=== PATIENT | male | born 1940 | race Caucasian/White ===

== ENCOUNTER 2017-05-28 17:11 | Observation (INO) | payer MEDICARE ==
[~2017-05-28] VITALS: Ht 175.3 cm; Wt 82.1 kg
[~2017-05-28 17:11] MED LIST: ASPI81TA82 PO; ATOR20TA42 PO
[2017-05-28 20:15] VITALS: BP 139/80; PULSE 73; RESP 18; TEMP 98.1; O2SAT 96
[2017-05-28] MEDS ORDERED: MORPHINE SULFATE 2 MG/ML INJ IV PRN (20:45)
[2017-05-28] MEDS ORDERED: NALOXONE HCL 0.4 MG/ML AMP IV PRN (20:45)
[2017-05-28] MEDS ORDERED: ACETAMINOPHEN/HYDROcodone 325 MG/5 MG TAB PO PRN ×2 (20:45)
[2017-05-28] MEDS ORDERED: SODIUM CHLORIDE 0.9% FLUSH 10 ML FLUSH IV FLUSH PRN (20:45)
[2017-05-28] MEDS: SODIUM CHLORIDE 0.9% FLUSH 10 ML FLUSH IV FLUSH SCH (21:00)
[2017-05-28] MEDS: MORPHINE SULFATE 4 MG/ML INJ IV PRN (21:05)
--- NOTE | 2017-05-28 21:45 | HHI.HP ---
HPI Service [facility] Primary Care Physician Tonny Madera DO Admission Diagnosis Right elbow fracture Diagnoses: Chief Complaint: Right elbow pain Travel History International Travel<30 Days: No Contact w/Intl Traveler <30 Da: No History of Present Illness 77-year-old male with a history of hypertension and hyperlipidemia was transferred from [facility] for an elbow fracture. He states he was standing on a ladder taking down boards on his windows when the ladder became uneven on the ground and he fell landing on his right arm. Denies hitting his head or LOC. He states the pain is in his right elbow, constant, 9/10, and was just given morphine IV for some relief. Denies any associated nausea and vomiting. Prior to the fall he denies any chest pain, shortness of breath, dizziness or headache. He was originally accepted by Dr. Krishna for transfer, but family is requesting that Dr. Huang do the surgery. Review of Systems Except as stated in HPI: all other systems reviewed are Neg Past Family Social History Past Medical History Hypertension Hyperlipidemia Kidney stones Past Surgical History Right foot surgery Appendectomy Left hand surgery Bilateral Cataracts Reported Medications Reported Meds & Active Scripts Active Reported Aspir-81 (Aspirin) 81 Mg Tab 81 Mg PO DAILY Lipitor (Atorvastatin Calcium) 20 Mg Tab 20 Mg PO DAILY Allergies: Coded Allergies: No Known Allergies (Verified , 02/24/07) Active Ordered Medications Current Medications Medications (Trade) Dose Ordered Sig/Juvenal Route Start Time Stop Time Status Last Admin ([place] 5-325 Mg) 1 tab Q4H PRN PO 05/28/17 20:45 ([place] 5-325 Mg) 2 tab Q6H PRN PO 05/28/17 20:45 (NS Flush) 2 ml UNSCH PRN IV FLUSH 05/28/17 20:45 (NS Flush) 2 ml BID IV FLUSH 05/28/17 21:00 (Narcan Inj) 0.4 mg UNSCH PRN IV 05/28/17 20:45 (Morphine Inj) 2 mg Q4H PRN IV 05/28/17 21:00 Family History Patient denies any family history, no heart disease or cancer Social History Tobacco use: 3/4 a PPD Alcohol use: Denies Illicit drug use: Denies Physical Exam Vital Signs Vital Signs Date Time Temp Pulse Resp B/P (MAP) Pulse Ox O2 Delivery O2 Flow Rate FiO2 05/28/17 20:15 98.1 73 18 139/80 (99) 96 Physical Exam GENERAL: This is a well-nourished, well-developed patient, in no apparent distress. SKIN: No rashes, ecchymoses or lesions. Cool and dry. HEAD: Atraumatic. Normocephalic. EYES: Pupils equal round and reactive. ENT: Nose without bleeding, purulent drainage or septal hematoma. Airway patent. NECK: Trachea midline. No JVD or lymphadenopathy. CARDIOVASCULAR: Regular rate and rhythm without murmurs, gallops, or rubs. RESPIRATORY: Clear to auscultation. Breath sounds equal bilaterally. No wheezes , rales, or rhonchi. GASTROINTESTINAL: Abdomen soft, non-tender, nondistended. No hepato-splenomegaly , or palpable masses. No guarding. MUSCULOSKELETAL: No bilateral lower extremity edema. Right elbow tenderness and edema. No calf tenderness. NEUROLOGICAL: Awake and alert. Motor and sensory grossly within normal limits. Right arm in sling with minimal movement. Normal speech. Caprini VTE Risk Assessment Caprini VTE Risk Assessment: Mod/High Risk (score >= 2) VTE Pharm Contraindication: surgery in a.m. Caprini Risk Assessment Model Point Value = 1 Point Value = 2 Point Value = 3 Point Value = 5 Age 41-60 Minor surgery BMI > 25 kg/m2 Swollen legs Varicose veins or History of unexplained or recurrent spontaneous Oral contraceptives or hormone replacement Sepsis (< 1 month) Serious lung disease, including pneumonia (< 1 month) Abnormal pulmonary function Acute myocardial infarction Congestive heart failure (< 1 month) History of inflammatory bowel disease Medical patient at bed rest Age 61-74 Arthroscopic surgery Major open surgery (> 45 min) Laparoscopic surgery (> 45 min) Malignancy Confined to bed (> 72 hours) Immobilizing plaster cast Central venous access Age >= 75 History of VTE Family history of VTE Factor V Leiden Prothrombin [id number] Lupus anticoagulant Anticardiolipin antibodies Elevated serum homocysteine Heparin-induced thrombocytopenia Other congenital or acquired thrombophilia Stroke (< 1 month) Elective arthroplasty Hip, pelvis, or leg fracture Acute spinal cord injury (< 1 month) Prophylaxis Regimen Total Risk Factor Score Risk Level Prophylaxis Regimen 0-1 Low Early ambulation 2 Moderate Order ONE of the following: *Sequential Compression Device (SCD) *Heparin 5000 units SQ BID 3-4 Higher Order ONE of the following medications: *Heparin 5000 units SQ TID *Enoxaparin/Lovenox 40 mg SQ daily (WT < 150 kg, CrCl > 30 mL/min) *Enoxaparin/Lovenox 30 mg SQ daily (WT < 150 kg, CrCl > 10-29 mL/min) *Enoxaparin/Lovenox 30 mg SQ BID (WT < 150 kg, CrCl > 30 mL/min) AND/OR *Sequential Compression Device (SCD) 5 or more Highest Order ONE of the following medications: *Heparin 5000 units SQ TID (Preferred with Epidurals) *Enoxaparin/Lovenox 40 mg SQ daily (WT < 150 kg, CrCl > 30 mL/min) *Enoxaparin/Lovenox 30 mg SQ daily (WT < 150 kg, CrCl > 10-29 mL/min) *Enoxaparin/Lovenox 30 mg SQ BID (WT < 150 kg, CrCl > 30 mL/min) AND *Sequential Compression Device (SCD) Assessment and Plan Problem List: (1) Elbow fracture, right ICD Code: S42.401A - Unspecified fracture of lower end of right humerus, initial encounter for closed fracture (2) HTN (hypertension) ICD Code: I10 - Essential (primary) hypertension (3) Hyperlipidemia ICD Code: E78.5 - Hyperlipidemia, unspecified Assessment and Plan 77-year-old male with a history of hypertension and hyperlipidemia was transferred from [facility] for an elbow fracture. Right elbow fracture -Consult orthopedic, patient and family is requesting Dr. Huang -Morphine IV and by mouth [place] for pain management -Maintain right arm in sling Hypertension, chronic currently controlled: We will order home medications once med rec is updated Hyperlipidemia, chronic: We will order home medications once med rec is updated DVT prophylaxis: SCDs, hold chemical prophylaxis due to surgery in a.m. Discussed Condition With Patient, patient's Physician Certification 2 Midnight Certification Type: Admission for Inpatient Services Order for Inpatient Services The services are ordered in accordance with Medicare regulations or non- Medicare payer requirements, as applicable. In the case of services not specified as inpatient-only, they are appropriately provided as inpatient services in accordance with the 2-midnight benchmark. Estimated LOS (days): 2 days is the estimated time the patient will need to remain in the hospital, assuming treatment plan goals are met and no additional complications. Post-Hospital Plan: Home Connie Velazco May 28, 2017 21:45
[2017-05-29] MEDS: MORPHINE SULFATE 4 MG/ML INJ IV PRN ×4 (03:22→21:56)
[2017-05-29 04:17] VITALS: BP 108/60; PULSE 74; RESP 17; TEMP 98; O2SAT 95
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
[2017-05-29 08:00] VITALS: BP 118/74; PULSE 88; RESP 18; TEMP 98.2; O2SAT 96
--- NOTE | 2017-05-29 08:45 | RADRPT ---
EXAM DATE/TIME: 05/29/2017 07:32 [facility] COMPARISON: No previous studies available for comparison. INDICATIONS : Right shoulder pain. Fall. MEDICAL HISTORY : None. SURGICAL HISTORY : None. ENCOUNTER: Initial ACUITY: 1 day PAIN SCORE: 4/10 LOCATION: Right proximal humerus FINDINGS: There is evidence of acute anterior dislocation of the right shoulder. Clinical correlation is recom mended. Questionable Hill-Sachs deformity is noted. CONCLUSION: 1. Probable acute anterior dislocation. Clinical correlation is recommended. 2. Questionable Hill-Sachs deformity of the right humeral head. Tonny Terrell MD on May 29, 2017 at 8:22 Board Certified Radiologist. This report was verified electronically.
[2017-05-29] MEDS: SODIUM CHLORIDE 0.9% FLUSH 10 ML FLUSH IV FLUSH SCH ×2 (09:45→21:56)
[2017-05-29 10:59] LABS: AUTOMATED NEUTROPHIL # 7.6 TH/MM3 (1.8-7.7); BASOPHIL % 0.4 % (0.0-2.0); EOSINOPHIL # 0.2 TH/MM3 (0-0.4); EOSINOPHIL % 1.7 % (0.0-4.0); HEMATOCRIT 40.2 % (39.0-51.0); HEMO FLAGS DIFF FINAL; LYMPH % 15.4 % (9.0-44.0); LYMPHOCYTE # 1.7 TH/MM3 (1.0-4.8); MEAN CELL VOLUME 86.2 FL (80.0-100.0); MEAN CORPUSCULAR HEMOGLOBIN 29.4 PG (27.0-34.0); MONO % 12.9 % (0.0-8.0); NEUT % 69.6 % (16.0-70.0); PLATELET COUNT 210 TH/MM3 (150-450); RED BLOOD COUNT 4.66 MIL/MM3 (4.50-5.90); RED CELL DISTRIBUTION WIDTH 13.7 % (11.6-17.2); WHITE BLOOD COUNT 10.9 TH/MM3 (4.0-11.0)
[2017-05-29 11:12] LABS: BICARBONATE 23.2 MEQ/L (21.0-32.0); POTASSIUM 4.1 MEQ/L (3.5-5.1)
[2017-05-29 12:00] VITALS: BP 146/75; PULSE 64; RESP 18; TEMP 96.7; O2SAT 95
--- NOTE | 2017-05-29 13:38 | HHI.PR ---
Subjective Remarks Follow up on patient with right supracondylar distal humerus fracture. Patient seen and examined. Patient states pain is controlled at present. Denies any other complaints. Denies any fever or chills. Denies any chest pain or shortness of breath. Denies any N/V or abdominal pain. Objective Vitals Vital Signs Date Time Temp Pulse Resp B/P (MAP) Pulse Ox O2 Delivery O2 Flow Rate FiO2 05/29/17 12:00 96.7 64 18 146/75 (98) 95 05/29/17 08:00 98.2 88 18 118/74 (89) 96 05/29/17 04:17 98.0 74 17 108/60 (76) 95 05/29/17 03:26 18 05/29/17 01:45 Room Air 05/28/17 20:15 98.1 73 18 139/80 (99) 96 I/O 05/28/17 05/28/17 05/28/17 05/29/17 05/29/17 05/29/17 07:00 15:00 23:00 07:00 15:00 23:00 Intake Total 240 ml 0 ml Balance 240 ml 0 ml Intake Oral 240 ml 0 ml # Voids 1 1 # Bowel Movements 0 0 Result Diagram: 05/29/17 1018 05/29/17 1018 Imaging Last Impressions Shoulder X-Ray 05/29/17 0000 Signed Impressions: Service Date/Time: Monday, May 29, 2017 07:32 - CONCLUSION: 1. Probable acute anterior dislocation. Clinical correlation is recommended. 2. Questionable Hill-Sachs deformity of the right humeral head. Tonny Terrell MD Objective Remarks GENERAL: This is a well-nourished, well-developed patient, in no apparent distress. Awake and alert. Sitting up in hospital bed. SKIN: No rashes, ecchymoses or lesions. Cool and dry. HEAD: Atraumatic. Normocephalic. EYES: EOMI. Sclera nonicteric. ENT: Nose without bleeding, purulent drainage. Airway patent. NECK: Trachea midline. CARDIOVASCULAR: Regular rate and rhythm without murmurs, gallops, or rubs. RESPIRATORY: Clear to auscultation. Breath sounds equal bilaterally. No wheezes , rales, or rhonchi. GASTROINTESTINAL: Abdomen soft, non-tender, nondistended. No hepato-splenomegaly , or palpable masses. No guarding. MUSCULOSKELETAL: No bilateral lower extremity edema. Right elbow in splint and sling. No calf tenderness. NEUROLOGICAL: Awake and alert. Motor and sensory grossly within normal limits. RUE in sling, ROM not tested. Able to wiggle fingers of right hand. Sensation intact to light touch. Normal speech. Medications and IVs Current Medications Medications (Trade) Dose Ordered Sig/Juvenal Route Start Time Stop Time Status Last Admin ([place] 5-325 Mg) 1 tab Q4H PRN PO 05/28/17 20:45 ([place] 5-325 Mg) 2 tab Q6H PRN PO 05/28/17 20:45 (NS Flush) 2 ml UNSCH PRN IV FLUSH 05/28/17 20:45 (NS Flush) 2 ml BID IV FLUSH 05/28/17 21:00 05/29/17 09:45 (Narcan Inj) 0.4 mg UNSCH PRN IV 05/28/17 20:45 (Morphine Inj) 2 mg Q4H PRN IV 05/28/17 21:00 05/29/17 09:42 A/P Problem List: (1) Elbow fracture, right ICD Code: S42.401A - Unspecified fracture of lower end of right humerus, initial encounter for closed fracture (2) HTN (hypertension) ICD Code: I10 - Essential (primary) hypertension (3) Hyperlipidemia ICD Code: E78.5 - Hyperlipidemia, unspecified Assessment and Plan 77-year-old male with a history of hypertension and hyperlipidemia was transferred from [facility] for an elbow fracture. Right supracondylar distal humerus fracture -Ortho following, appreciate their assistance. Plan for surgery in am. NPO after MN. -Continue Morphine IV and by mouth [place] for pain management -Maintain right arm in sling -NWB RUE Hypertension, chronic - good control - awaiting med rec update to resume patients home medication Hyperlipidemia, chronic - awaiting med rec update to resume patients home medication DVT prophylaxis: SCDs, hold chemical prophylaxis due to surgery in a.m. Discussed with patient, nursing staff and Dr. Crane Attending Statement Pt had pain when we evaluated him. regrets what he did but is hopeful to have sx soon. no CP/SOb/N/V on exam, splint in place. able to wiggle his fingers, sensation intact, <2sec cap refil. management per ortho. sx in AM. appreciate Zoya Pabon May 29, 2017 13:38 Carlie Crane MD May 29, 2017 19:14
[2017-05-29] MEDS ORDERED: cloNIDine HCL 0.1 MG TAB PO PRN (13:45)
--- NOTE | 2017-05-29 13:53 | MB ---
cc: MARINO LUCAS DATE OF CONSULTATION: 05/29/[address] Carlie Crane. HISTORY OF PRESENT ILLNESS Jamison is a 77-year-old male who lives in [facility] [place]. He was taking plywood off his boarded up windows. He was on a ladder. The ladder tipped over, caused him to fall. He landed on outstretched right arm. He had immediate right elbow pain. He presented to the emergency room where x-rays revealed a right distal humerus fracture. He is currently awake and alert on the orthopedic floor. His only complaint is his right arm. Pain is worse with movement and is improved with rest. He initially presented to [facility] in [facility] [place]. He was transferred to [place] for definitive treatment. PAST MEDICAL HISTORY ILLNESSES 1. Hypertension. 2. High cholesterol. 3. Kidney stones. SURGERIES 1. Right foot surgery. 2. Appendectomy. 3. Cataract surgery. ALLERGIES NO KNOWN DRUG ALLERGIES. MEDICATIONS 1. Aspirin. 2. Lipitor. SOCIAL HISTORY The patient smokes three-quarter pack of cigarettes a day. He denies alcohol or drug use. He is a retired electrician helper. FAMILY HISTORY Noncontributory. REVIEW OF SYSTEMS The patient denies headache, visual changes, neck pain, chest pain, shortness of breath, abdominal pain, nausea, vomiting or recent weight loss or numbness or tingling of extremities. He complains of right elbow pain. Pain is worse with movement. PHYSICAL EXAMINATION GENERAL: The patient is a pleasant 77-year-old male, in no acute distress. He is awake and alert. He is alert and oriented x3. VITAL SIGNS: Temperature 98.0, pulse 74, respirations 17, blood pressure 108/60, O2 sat 95% on room air. HEAD: The patient is normocephalic. Pupils are equal. NECK: Soft, nontender. Trachea is midline. ABDOMEN: Soft, nontender, nondistended. EXTREMITIES: Examination of right arm reveals mild tenderness around his shoulder. He has mild discomfort with gentle shoulder motion. He is diffusely tender around the elbow. There is mild swelling around the elbow. He has intact sensation in all fingers. He has good cap refill in all fingers. Skin is intact. Examination of left arm reveals no pain with shoulder, elbow or wrist motion. He has intact sensation in all fingers. He has good cap refill in all fingers. Skin is intact. Radial pulses palpable. Examination of bilateral lower extremities reveals no pain with hip, knee or ankle motion. Skin is intact. Dorsalis pedis pulses palpable bilaterally. Sensation is intact in both feet. X-RAYS X-rays of the right elbow were reviewed from [facility]. X-rays reveal a displaced right supracondylar distal humerus fracture. X-rays of right wrist reveal minimally displaced right distal radius and ulna fractures IMPRESSION 1. Mild right shoulder pain. 2. Displaced right distal humerus supracondylar fracture. 3. Minimally displaced right distal radius and ulna fractures PLAN Treatment options were discussed with the patient. At this point I would recommend open reduction, internal fixation of right distal humerus and nonsurgical treatment of right distal radius and ulna fractures.. Risks of surgery include bleeding, infection, injuries to arteries, nerves and blood vessels, nonunion, malunion, painful hardware, elbow stiffness, injury to ulnar nerve as well as medical complications including blood clot, stroke, heart attack and . All questions were answered. I will plan on surgery today. A mid-level provider in my office, nurse practitioner or PA, may see this patient on a follow-up basis and continue to implement the objective of this plan including: Starting or adjusting medications, injections of muscle, tendon, bursa or joints, cast application, orthotic or brace application, physical therapy, further radiographic studies including x-ray, MRI, CT, ultrasounds or bone scan, vascular studies, neurologic studies, or other specialist consultations, and proceeding with surgical management as appropriate. MD RICCARDO Hernandez/MAIA /7:33 AM /1:40 PM YENNY
[2017-05-29 16:00] VITALS: BP 107/66; PULSE 64; RESP 17; TEMP 98; O2SAT 93
[2017-05-29 19:00] VITALS: BP 134/80; PULSE 64; RESP 15; TEMP 97.5; O2SAT 99
--- NOTE | 2017-05-29 21:32 | EKG ---
Date Performed: 05/28/2017 Time Performed: 20:45:31 PTAGE: 77 years EKG: Sinus rhythm PREVIOUS TRACING : 06/15/2011 20.51 Compared to prior tracing no significant change DOCTOR: Brenda Blackwell Interpretating Date/Time 05/29/2017 21:30:37
[2017-05-30 04:00] VITALS: BP 125/80; PULSE 61; RESP 17; TEMP 97.5; O2SAT 92
--- NOTE | 2017-05-30 06:35 | PD.ORT.PN ---
Subjective Subjective Remarks Resting comfortably with no new complaints Objective Vitals Vital Signs Date Time Temp Pulse Resp B/P (MAP) Pulse Ox O2 Delivery O2 Flow Rate FiO2 05/30/17 04:00 97.5 61 17 125/80 (95) 92 05/30/17 01:30 Room Air 05/29/17 22:01 18 05/29/17 20:19 18 05/29/17 19:00 97.5 64 15 134/80 (98) 99 05/29/17 16:00 98.0 64 17 107/66 (80) 93 05/29/17 12:00 96.7 64 18 146/75 (98) 95 05/29/17 08:00 98.2 88 18 118/74 (89) 96 I/O 05/29/17 05/29/17 05/29/17 05/30/17 05/30/17 05/30/17 07:00 15:00 23:00 07:00 15:00 23:00 Intake Total 0 ml 480 ml 480 ml 240 ml Output Total 450 ml Balance 0 ml 480 ml 30 ml 240 ml Intake Oral 0 ml 480 ml 480 ml 240 ml Output Urine Total 450 ml # Voids 1 1 3 1 # Bowel Movements 0 0 1 0 Result Diagram: 05/29/17 1018 05/29/17 1018 Objective Remarks RUE: +long arm splint. intact. NVI full extension and flexion of all fingers Assessment & Plan Assessment and Plan 1) Right Supracondylar Distal Humerus Fracture -NWB -maintain splint -npo -sign consents -surgery today Bruce Maza Jr. May 30, 2017 06:35
[2017-05-30] MEDS ORDERED: SODIUM CHLOR 0.9% 250 ML INJ 250 ML ONE (06:56)
[2017-05-30] MEDS ORDERED: VANCOMYCIN HCL 1000 MG VIAL ONE (06:56)
[2017-05-30] MEDS ORDERED: GENTAMICIN SULFATE 80 MG/2 ML VIAL ONE (06:56)
[2017-05-30 08:00] VITALS: BP_SYST 124; BP_SYST 131; BP_DIAS 75; BP_DIAS 77; PULSE 65; PULSE 69; RESP 16; TEMP 97.2; TEMP 98.4; O2SAT 94; O2SAT 98
[2017-05-30] MEDS ORDERED: ERGO1CAP30 PO (08:29)
[2017-05-30] MEDS ORDERED: HYDR-3580 PO (08:29)
[2017-05-30] MEDS ORDERED: VITA2000 PO (08:29)
[2017-05-30] MEDS ORDERED: CALCTAB19 PO (08:29)
[2017-05-30] MEDS ORDERED: MIDAZOLAM HCL 2 MG/2 ML VIAL ONE (08:52)
[2017-05-30] MEDS ORDERED: DEXAMETHASONE SOD PHOS 4 MG/ML VIAL ONE (08:52)
[2017-05-30] MEDS ORDERED: ACETAMINOPHEN 1000 MG/100 ML 100 ML IV ONE (08:52)
[2017-05-30] MEDS ORDERED: FAMOTIDINE 20 MG/2 ML VIAL ONE (08:52)
[2017-05-30] MEDS ORDERED: ceFAZolin 2 GM PREMIX 50 ML ONE (09:06)
--- NOTE | 2017-05-30 10:35 | PD.OP ---
cc: Dmitri Mae MD Operative Report Date of Surgery: May 30, 2017 Preoperative Diagnosis: Displaced right distal humerus supracondylar fracture, nondisplaced right distal radius and ulna fractures Postoperative Diagnosis: Procedure: Open reduction internal fixation right distal humerus fracture Anesthesia: Gen. Surgeon: Dmitri Mae Software Developer(s): Ramon Burroughs PA-C The surgical procedure was assisted by my physician cosmetic sales assistant. My P.A. presence was necessary throughout this case for the manipulation and positioning of the surgical extremity. My P.A. was assisting me throughout the duration of this procedure. The skill set of a physician cosmetic sales assistant was medically necessary to complete this procedure. During the surgical case the director medical surgical was working at the back table and the physician cosmetic sales assistant was directly assisting me. Operation and Findings: Plan of activity: Nonweightbearing right arm, start passive and active assist range of motion right elbow in 2 weeks, splint/cast right wrist Patient was seen and evaluated preoperatively. Treatment options were discussed regarding distal humerus fracture including surgical and nonsurgical treatments. After detailed discussion of risk and benefits of procedure patient wishes to proceed with surgery. Risks of surgery include bleeding, infection, nonunion, malunion, painful hardware, loss of motion of shoulder and elbow, weakness and numbness of arm, ulnar nerve injury as well as medical competitions including blood clots stroke and . Patient was brought to operating room and placed on the OR table. GETA was administered by anesthesiologist. Patient was positioned in lateral decubitus position. Extremities were well-padded. Axillary roll was placed. Patient's right arm and shoulder were prepped with alcohol followed by Hibiclens and draped usual sterile fashion. Timeout procedure was performed. IV antibiotics were given prior to incision. A standard posterior approach was utilized. Subcutaneous tissues was dissected with Bovie. The lateral border of the triceps was elevated off of the distal humerus. Fracture site was visualized. Next, the ulnar nerve was identified and protected throughout the procedure. The nerve was intact. The fracture was identified along the medial distal humerus. Soft tissue was removed from the fracture site. Fracture site was cleaned with curettes. At this point the fracture was reduced using fracture tenaculums. Multiplanar fluoroscopy confirmed excellent of fracture. Synthes distal humerus plates were selected. The medial plate was provisionally held the bone with K wires. 3.5 cortical screws were placed to compress plate to bone. Multiple 2.7 locking screws were placed distally. Care was taken to keep screws from penetrating the articular surface. Multiple screws were placed in each side of the fracture. All screws were predrilled and premeasured for appropriate length. Next the lateral plate was placed along the posterior lateral humerus. Plate was provisionally held to bone with K wires. 3.5 cortical screws were used to compress plate to bone. Additional 2.7 locking screws were placed distally. K wires were removed. Final fluoroscopy revealed excellent alignment of fracture with well-placed hardware. Incision was thoroughly irrigated. Fascia was closed with #1 Vicryl , subcutaneous tissues closed with 3-0 Vicryl, and skin was closed with yousuf. At this point the right distal radius and ulna were visualized under fluoroscopy. Alignment was near-anatomic. This will be treated nonsurgically. Sterile dressings were applied and patient was placed into a well molded splints. Needle and sponge counts were correct. Patient was placed into a sling, and then transferred to recovery room in stable condition Dmitri Mae MD May 30, 2017 10:35
[2017-05-30] MEDS ORDERED: MORPHINE SULFATE 4 MG/ML INJ IV PUSH PRN (10:45)
[2017-05-30] MEDS ORDERED: Post-op Orders (for Pharmacy) MISC XX ONE (10:45)
[2017-05-30] MEDS: SODIUM CHLORIDE 0.9% FLUSH 10 ML FLUSH IV FLUSH SCH ×2 (11:00→20:24)
[2017-05-30] MEDS ORDERED: *morphine SULFATE 8 MG/ML PERIprocedure ONLY ONE (11:13)
[2017-05-30] MEDS ORDERED: DO NOT ADM ANY ANTICOAGULANT DRUGS PRN (11:30)
[2017-05-30 12:00] VITALS: BP 147/78; PULSE 97; RESP 16; TEMP 96.8; O2SAT 93
[2017-05-30] MEDS ORDERED: NEOSTIGMINE 3 MG/3 ML SYR IV ONE (12:00)
[2017-05-30] MEDS ORDERED: PROPOFOL 200 MG/20 ML AMP IV ONE (12:00)
[2017-05-30] MEDS ORDERED: ONDANSETRON HCL 4 MG/2 ML VIAL IV PUSH ONE (12:00)
[2017-05-30] MEDS: ACETAMINOPHEN/HYDROcodone 325 MG/10 MG TAB PO PRN ×3 (12:27→20:24)
[2017-05-30] MEDS ORDERED: ENALAPRILAT 1.25 MG/ML VIAL IV PUSH PRN (14:45)
[2017-05-30] MEDS ORDERED: hydrALAZINE HCL 10 MG TAB PO PRN (14:45)
--- NOTE | 2017-05-30 15:34 | RADRPT ---
EXAM DATE/TIME: 05/30/2017 09:44 [facility] COMPARISON: No previous studies available for comparison. INDICATIONS : ORIF of the distal humerus. MEDICAL HISTORY : Hypertension. Smoker. SURGICAL HISTORY : None. ENCOUNTER: Subsequent ACUITY: 2 days PAIN SCORE: Non-responsive. LOCATION: Right distal humerus. FINDINGS: Two-view right humerus demonstrates it has lateral and medial fixation plates across a distal humeral fracture. Alignment is anatomic. There are no complications. CONCLUSION: Two-view right humerus demonstrates it has lateral and medial fixation plates across a distal humeral fracture. Alignment is anatomic. There are no complications. Ac Tapia MD on May 30, 2017 at 15:20 Board Certified Radiologist. This report was verified electronically.
--- NOTE | 2017-05-30 15:35 | HHI.PR ---
Subjective Remarks Pt tells me that pain is controlled although present, no CP/SOB/n/v hopeful to go home tomorrow Objective Vitals Vital Signs Date Time Temp Pulse Resp B/P (MAP) Pulse Ox O2 Delivery O2 Flow Rate FiO2 05/30/17 12:00 96.8 97 16 147/78 (101) 93 05/30/17 11:45 68 16 143/69 (93) 94 Nasal Cannula 2 05/30/17 11:30 68 16 143/67 (92) 94 Nasal Cannula 2 05/30/17 11:15 66 16 151/76 (101) 94 Nasal Cannula 2 05/30/17 11:00 98.4 66 16 157/74 (101) 93 Nasal Cannula 2 05/30/17 04:00 97.5 61 17 125/80 (95) 92 05/30/17 01:30 Room Air 05/29/17 22:01 18 05/29/17 20:19 18 05/29/17 19:00 97.5 64 15 134/80 (98) 99 05/29/17 16:00 98.0 64 17 107/66 (80) 93 I/O 05/29/17 05/29/17 05/29/17 05/30/17 05/30/17 05/30/17 07:00 15:00 23:00 07:00 15:00 23:00 Intake Total 0 ml 480 ml 480 ml 240 ml 710 ml Output Total 450 ml 50 ml Balance 0 ml 480 ml 30 ml 240 ml 660 ml Intake Oral 0 ml 480 ml 480 ml 240 ml IV Total 10 ml Other 700 ml Output Urine Total 450 ml Estimated Blood Loss 50 ml # Voids 1 1 3 1 # Bowel Movements 0 0 1 0 Result Diagram: 05/29/17 1018 05/29/17 1018 Imaging Last Impressions Shoulder X-Ray 05/29/17 0000 Signed Impressions: Service Date/Time: Monday, May 29, 2017 07:32 - CONCLUSION: 1. Probable acute anterior dislocation. Clinical correlation is recommended. 2. Questionable Hill-Sachs deformity of the right humeral head. Tonny Terrell MD Objective Remarks GENERAL: Awake and alert. laying in bed. EYES: EOMI. CARDIOVASCULAR: Regular rate and rhythm without murmurs RESPIRATORY: Clear to auscultation. Breath sounds equal bilaterally. No wheezes GASTROINTESTINAL: Abdomen soft, non-tender, nondistended. No guarding. MUSCULOSKELETAL: No bilateral lower extremity edema. Right elbow in splint and sling. No calf tenderness. NEUROLOGICAL: Awake and alert. Motor and sensory grossly within normal limits. RUE in sling, ROM not tested. Able to wiggle fingers of right hand. Sensation intact to light touch. Normal speech. A/P Problem List: (1) Elbow fracture, right ICD Code: S42.401A - Unspecified fracture of lower end of right humerus, initial encounter for closed fracture (2) HTN (hypertension) ICD Code: I10 - Essential (primary) hypertension (3) Hyperlipidemia ICD Code: E78.5 - Hyperlipidemia, unspecified Assessment and Plan 77-year-old male with a history of hypertension and hyperlipidemia was transferred from [facility] for an elbow fracture. Right supracondylar distal humerus fracture -Ortho following, appreciate their assistance. s/p Open reduction internal fixation right distal humerus fracture POD 0 -pain management/rehab/abx and dvt proph per ortho Hypertension, chronic - Pain mildly elevated but could be secondary to pain. added hydralazine and vasotec prn. - awaiting med rec update to resume patients home medication Hyperlipidemia, chronic - awaiting med rec update to resume patients home medication DVT prophylaxis: SCDs, per ortho Discharge Planning once cleared by Carlie Del Angel MD May 30, 2017 15:35
--- NOTE | 2017-05-30 15:46 | RADRPT ---
EXAM DATE/TIME: 05/30/2017 09:44 [place] COMPARISON: No previous studies available for comparison. INDICATIONS : Verify alignment of the right wrist. MEDICAL HISTORY : Hypertension. Smoker. SURGICAL HISTORY : None. ENCOUNTER: Initial ACUITY: 1 day PAIN SCORE: Non-responsive. LOCATION: Right wrist. FINDINGS/CONCLUSION: Two-view right wrist demonstrates the patient has a focal fracture of the di stal radial metaphysis. There is good alignment on the final film, lateral film. The ulna is also f ractured with a small buckle fracture. Ac Tapia MD on May 30, 2017 at 15:20 Board Certified Radiologist. This report was verified electronically.
[2017-05-30 16:00] VITALS: BP 135/88; PULSE 84; RESP 16; TEMP 98.3; O2SAT 93
[2017-05-30] MEDS ORDERED: LISI10TA3 PO (16:16)
[2017-05-30] MEDS ORDERED: ASPI81CH CHEW (16:17)
[2017-05-30] MEDS ORDERED: ATOR20TA15 PO (16:18)
[2017-05-30 16:23] VITALS: O2SAT 96
[2017-05-30] MEDS ORDERED: ceFAZolin 1,000 MG/NS 100 ML IV PRN ×2 (18:45)
[2017-05-30] MEDS ORDERED: ceFAZolin 2 GM PREMIX 50 ML IV PRN (18:45)
[2017-05-30 20:00] VITALS: BP 122/71; PULSE 77; RESP 16; TEMP 99.1; O2SAT 95
[2017-05-30] MEDS: CALCIUM/VITAMIN D 250 MG/125 U TAB PO SCH (20:24)
[2017-05-31] VITALS: BP 113/69; PULSE 72; RESP 17; TEMP 98.6; O2SAT 95
[2017-05-31] MEDS: ceFAZolin 2 GM PREMIX 50 ML IV SCH ×2 (01:00→07:58)
[2017-05-31 04:00] VITALS: BP 148/76; PULSE 80; RESP 16; TEMP 97.7; O2SAT 96
[2017-05-31] MEDS: ACETAMINOPHEN/HYDROcodone 325 MG/10 MG TAB PO PRN ×3 (04:54→16:46)
[2017-05-31] MEDS: CALCIUM/VITAMIN D 250 MG/125 U TAB PO SCH (07:57)
[2017-05-31] MEDS: SODIUM CHLORIDE 0.9% FLUSH 10 ML FLUSH IV FLUSH SCH (07:58)
[2017-05-31 08:00] VITALS: BP 139/74; PULSE 59; RESP 17; TEMP 96.7; O2SAT 93
[2017-05-31 08:04] LABS: HEMATOCRIT 39.1 % (39.0-51.0); REVIEW FLAG FINAL
[2017-05-31] MEDS ORDERED: CHOLECALCIFEROL (VIT D3) 1000 UNIT TAB PO SCH (09:00)
--- NOTE | 2017-05-31 10:01 | PD.ORT.PN ---
Subjective Subjective Remarks Resting comfortably with no new complaints Objective Vitals Vital Signs Date Time Temp Pulse Resp B/P (MAP) Pulse Ox O2 Delivery O2 Flow Rate FiO2 05/31/17 08:00 96.7 59 17 139/74 (95) 93 05/31/17 04:00 97.7 80 16 148/76 (100) 96 05/31/17 00:00 98.6 72 17 113/69 (84) 95 05/30/17 20:00 99.1 77 16 122/71 (88) 95 05/30/17 16:23 96 21 05/30/17 16:00 98.3 84 16 135/88 (104) 93 05/30/17 12:00 96.8 97 16 147/78 (101) 93 05/30/17 11:45 68 16 143/69 (93) 94 Nasal Cannula 2 05/30/17 11:30 68 16 143/67 (92) 94 Nasal Cannula 2 05/30/17 11:15 66 16 151/76 (101) 94 Nasal Cannula 2 05/30/17 11:00 98.4 66 16 157/74 (101) 93 Nasal Cannula 2 I/O 05/30/17 05/30/17 05/30/17 05/31/17 05/31/17 05/31/17 06:59 14:59 22:59 06:59 14:59 22:59 Intake Total 240 ml 950 ml 600 ml 240 ml Output Total 550 ml Balance 240 ml 400 ml 600 ml 240 ml Intake Oral 240 ml 240 ml 600 ml 240 ml IV Total 10 ml Other 700 ml Output Urine Total 500 ml Estimated Blood Loss 50 ml # Voids 1 1 2 2 # Bowel Movements 0 0 Result Diagram: 05/31/17 0728 05/29/17 1018 Objective Remarks RUE: +long arm splint. intact. NVI full extension and flexion of all fingers Assessment & Plan Assessment and Plan 1) Right Supracondylar Distal Humerus Fracture ORIF POD 1 -NWB -maintain splint Sling when out of bed PT for evaluation for home discharge. The pain is controlled home discharge may be proceeded and follow-up with Dr. Mae in 2 weeks Bruce Maza Jr. May 31, 2017 10:00
[2017-05-31 12:00] VITALS: BP 118/67; PULSE 61; RESP 18; TEMP 97.9; O2SAT 93
--- NOTE | 2017-05-31 13:41 | HHI.DS ---
Discharge Summary Admission Date May 28, 2017 at 18:31 Discharge Date: May 31, 2017 Admitting Diagnosis Right elbow fracture (1) Elbow fracture, right ICD Code: S42.401A - Unspecified fracture of lower end of right humerus, initial encounter for closed fracture (2) HTN (hypertension) ICD Code: I10 - Essential (primary) hypertension (3) Hyperlipidemia ICD Code: E78.5 - Hyperlipidemia, unspecified Procedures s/p Open reduction internal fixation right distal humerus fracture Brief History - From Admission 77-year-old male with a history of hypertension and hyperlipidemia was transferred from [facility] for an elbow fracture. He states he was standing on a ladder taking down boards on his windows when the ladder became uneven on the ground and he fell landing on his right arm. Denies hitting his head or LOC. He states the pain is in his right elbow, constant, 9/10, and was just given morphine IV for some relief. Denies any associated nausea and vomiting. Prior to the fall he denies any chest pain, shortness of breath, dizziness or headache. He was originally accepted by Dr. Krishna for transfer, but family is requesting that Dr. Huang do the surgery. CBC/BMP: 05/31/17 0728 05/29/17 1018 Significant Findings Laboratory Tests Test 05/29/17 10:18 05/31/17 07:28 Monocytes (%) (Auto) 12.9 % (0.0-8.0) Monocytes # (Auto) 1.4 TH/MM3 (0-0.9) Calcium Level 8.2 MG/DL (8.5-10.1) Chloride Level 109 MEQ/L (98-107) Imaging Last Impressions Wrist X-Ray 05/30/17 0000 Signed Impressions: Service Date/Time: May 09:44 - CONCLUSION: Two-view right wrist demonstrates the patient has a focal fracture of the distal radial metaphysis. There is good alignment on the final film, lateral film. The ulna is also fractured with a small buckle fracture. Ac Tapia MD Humerus X-Ray 05/30/17 0000 Signed Impressions: Service Date/Time: May 09:44 - CONCLUSION: Two-view right humerus demonstrates it has lateral and medial fixation plates across a distal humeral fracture. Alignment is anatomic. There are no complications. Ac Tapia MD Shoulder X-Ray 05/29/17 0000 Signed Impressions: Service Date/Time: Monday, May 29, 2017 07:32 - CONCLUSION: 1. Probable acute anterior dislocation. Clinical correlation is recommended. 2. Questionable Hill-Sachs deformity of the right humeral head. Tonny Terrell MD PE at Discharge GENERAL: Awake and alert. laying in bed. EYES: EOMI. CARDIOVASCULAR: Regular rate and rhythm without murmurs RESPIRATORY: Clear to auscultation. Breath sounds equal bilaterally. No wheezes GASTROINTESTINAL: Abdomen soft, non-tender, nondistended. No guarding. MUSCULOSKELETAL: No bilateral lower extremity edema. Right elbow in splint and sling. No calf tenderness. NEUROLOGICAL: Awake and alert. Motor and sensory grossly within normal limits. RUE in sling, ROM not tested. Able to wiggle fingers of right hand. Sensation intact to light touch. Normal speech. Pt update on day of discharge Pt doing well. pain is controlled. denies any CP/SOB/N/V wants to go home Hospital Course 77-year-old male with a history of hypertension and hyperlipidemia was transferred from [facility] for an elbow fracture. Right supracondylar distal humerus fracture -Ortho following, appreciate their assistance. s/p Open reduction internal fixation right distal humerus fracture POD 1. Pt has been cleared for discharge. PT evaluated the pt, no need for outpatient PT -pain management and dvt proph per ortho -NWB -maintain splint -Sling when out of bed Hypertension, chronic - BPs at times were mildly elevated but could be secondary to pain. Pt didn' t require any BP meds while in the hospital. Continue heart healthy diet as an outpatient and f/u w PCP for BP monitoring and management. Pt Condition on Discharge: Stable Discharge Disposition: Discharge Home Discharge Time: > 30 minutes Discharge Instructions DIET: Follow Instructions for: Heart Healthy Diet Activities you can perform: Non Weight Bearing Follow up Referrals: Orthopedics - 2 Weeks @ [facility] with Dmitri Huang MD PCP Follow-up - 1 Week New Medications: Calcium Carbonate-Vitamin D (Calcium 600+D 200) 600-200 Mg-Unit Tab 1 TAB PO BID for Nutritional Supplement for 30 Days, #60 TAB 0 Refills Cholecalciferol (Vitamin D3) 2,000 Unit Cap 2000 UNITS PO DAILY for Nutritional Supplement, #56 CAP 0 Refills Ergocalciferol (Ergocalciferol) 50,000 Unit Cap 79497 UNITS PO Q7D for Nutritional Supplement, #56 CAP Hydrocodone-Acetaminophen (Hydrocodone-Acetaminophen) 7.5-325 mg Tab 1 TAB PO Q4H PRN for PAIN, #60 TAB 0 Refills Continued Medications: Atorvastatin (Atorvastatin) 20 Mg Tab 20 MG PO HS for Cholesterol Management, #30 TAB 0 Refills Discontinued Medications: Aspirin (Aspir-81) 81 Mg Tab 81 MG PO DAILY Aspirin (Aspirin) 81 Mg Chew 81 MG CHEW DAILY, TAB 0 Refills Atorvastatin (Lipitor) 20 Mg Tab 20 MG PO DAILY Lisinopril (Lisinopril) 10 Mg Tab 10 MG PO DAILY, #30 TAB 0 Refills Carlie Crane MD May 31, 2017 13:41
== END 2017-05-31 16:50 | disposition home or self-care (01) ==
LOC: INTOOBSV 18:31 → N06A 18:31
PROVIDERS: ADMIT Hospitalist; ATTEND Hospitalist
DX: S42.411A Displaced simple supracondylar fracture without intercondylar fracture of right humerus, initial encounter for closed fracture (principal); S52.601A Unspecified fracture of lower end of right ulna, initial encounter for closed fracture; I10 Essential (primary) hypertension; E78.5 Hyperlipidemia, unspecified; F17.210 Nicotine dependence, cigarettes, uncomplicated; W11.XXXA Fall on and from ladder, initial encounter; Y93.89 Activity, other specified; Y92.019 Unspecified place in single-family (private) house as the place of occurrence of the external cause
CPT/HCPCS: 01740; 24545; 73030; 73060; 73100; 76000; 80048; 85014; 85018; 85025; 93005; 94150; 97161; C1713; G8987; G8988; J0131; J0690; J1100; J1580; J2250; J2270; J2405; J2710; J3010; J3370; J7050; G0378